=== PATIENT | female | born 1940 | race Caucasian/White ===

== ENCOUNTER 2020-07-05 15:43 | Inpatient (IN) | payer MEDICARE, OTHER ==
[~2020-07-05] VITALS: Ht 165.1 cm; Wt 118.2 kg
[~2020-07-05 15:43] MED LIST: CITRACAL-VIT D1 EAC2 PO; CRESTOR5 MG PO; DYAZIDE 37.5-251 EA PO; FISH OIL 1,2001 EACH PO; FISH OIL 1,4001 EACH PO; MULTIVITAMINS1 EAC7 PO; VITAMIN D400 UNI4 PO; VITAMIN E400 UNI1 PO; WARFARIN SODIUM1 MG PO; WARFARIN SODIUM2 MG PO
[2020-07-05] MEDS ORDERED: FUROSEMIDE40 MG PO (19:54)
[2020-07-05] MEDS ORDERED: K-TAB ER20 MEQ PO (19:58)
--- NOTE | 2020-07-05 20:43 | NUR ---
@1946 PT ADMITTED TO ROOM 121, ACCOMPANIED BY HER DAUGHTER IN LAW (DIL). PT ABLE TO SLOWLY SCOOT SELF FROM THE STRETCHER TO HER BED, NOTED LOWER EXTREMITIES WRAPPED WITH EVER WRAPS. ON 2L O2, NC, DIL STATES THAT PT IS "SUPPOSE TO USE OXYGEN" BUT FAMILY HAVE NOT BEEN SUCCESSFUL IN HAVING PT WEAR O2. PT USES A CANE AT HOME, BUT AGREES TO USE A WALKER TONIGHT. HAS DEMENTIA, BUT ABLE TO CONVERSE, NEEDING TO HAVE REMINDERS OF THE CONVERSATION AND MEDICAL EVENTS BY HER DIL. HAS NOT ATE LUNCH OR DINNER BUT STATES SHE IS NOT HUNGRY WHEN OFFERED FOOD. DRANK SOME WATER WHEN OFFERED. BED ALARM PLACED PT ASKED SEVERAL TIMES ABOUT GETTING UP TO USE THE BATHROOM, WHAT TO DO. CALL LIGHT WITHIN REACH, EDUCATED ON HOW TO CALL FOR HELP. REFUSES TO HAVE TV ON, PREFERS TO READ, DALIA WILL BRING IN PT'S BOOK SATURDAY.
--- NOTE | 2020-07-05 22:00 | NUR ---
ADMISSION ASSESSMENT COMPLETE. PT ALERT AND ORIENTED X 4. PT IS NOTED TO BE FORGETFUL AND REPETITIVE WITH QUESTIONS. WILL PLACE BED ALARM FOR SAFETY. O2 2L/NC IN PLACE. RESPIRATIONS EVEN. ABSCESS IN RIGHT GROIN ERYTHMATOUS AND TENDER. ERYTHEMA AND WARMTH ALSO NOTED TO RIGHT THIGH. BILATERAL LOWER EXTREMITIES WRAPPED WITH EVER WRAPS DUE TO CHRONIC LYMPHEDEMA. PT DENIES PAIN OR NAUSEA. UP TO BR WITH SBA AND FWW TO VOID. GAIT STEADY. BACK TO BED, SOFÍA WELL. UA SENT TO LAB. IV ABX INFUSING PER ORDER. PT DENIES QUESTIONS OR CONCERNS. BED ALARM FOR SAFETY. CALL LIGHT IN REACH.
--- NOTE | 2020-07-06 00:30 | EKG ---
[facility] [address] [facility] [place] [address] Signed Sinus rhythm with premature atrial complexes with aberrant conduction Left axis deviation Right bundle branch block Abnormal ECG No previous ECGs available Confirmed by PEE JACKSON MD ([id number]) on 07/06/2020 12:30:06 AM Electronically Signed By: PEE JACKSON MD 07/06/20 0030 PATIENT NAME: MELLISA BOBBY [facility] [place], [place] Electrocardiogram DATE OF : 38 PHYSICIAN: PEE JACKSON MD REPORT #: [id number] REPORT IS CONFIDENTIAL AND NOT TO BE RELEASED WITHOUT AUTHORIZATION
--- NOTE | 2020-07-06 01:19 | NUR ---
PT RESTING IN BED WITH EYES CLOSED, NAD.
--- NOTE | 2020-07-06 02:15 | NUR ---
CALL LIGHT ANSWERED. PT UP TO BR WITH FWW AND SBA TO VOID 200 ML CONCENTRATED URINE. GAIT STEADY. BACK TO BED, SOFÍA WELL. DENIES PAIN. VS AND I&O COMPLETE. PT AFEBRILE. DENIES FURTHER NEEDS. PT IN VIEW OF NURSES STATION. BED ALARM FOR SAFETY.
--- NOTE | 2020-07-06 05:00 | NUR ---
PT CALLED, UP TO VOID 1PA FWW, PT VITALS DONE, RN OKAY'D LOWER BP, GRAPE JUICE PROVIDED, NO FURTHER NEEDS
--- NOTE | 2020-07-06 05:56 | NUR ---
IV ABX INFUSING PER ORDER. PT DENIES PAIN OR NAUSEA. WARM BLANKETS PROVIDED. REASSESSED BP. PT REPORTS CHRONIC LOW BP, ASYMPTOMATIC. O2 2L/NC IN PLACE. DENIES FURTHER NEEDS. CALL LIGHT IN REACH.
--- NOTE | 2020-07-06 08:00 | NUR ---
RECEIVD REPORT AT 0700, FOUND PT IN BED AWAKE. PT HAS NO NEEDS AT THAT TIME.
--- NOTE | 2020-07-06 09:24 | NUR ---
V/S ARE WDL. PT IS REFUSING O2 EVEN THOUGH SHE FAILED A ROOM AIR TRIAL. MD JACKSON IS AWARE. ABD SOUNDS ARE PRESENT, UPPER LOBES ARE CLEAR, LOWER LOBES ARE DIMINISHED. LOWER LEGS ARE WRAPPED DUE TO HER LYMPH EDEMA. RIGHT GROIN ABCESS HAS NO DRAINAGE PRESENT AT THIS TIME. REDNESS AND EDEMEA STILL PRESENT. WILL CONTINUE TO MONITOR.
[2020-07-06] MEDS ORDERED: WOMEN'S 50 PLU1 EACH PO (09:35)
[2020-07-06] MEDS ORDERED: VITAMIN D325 MCG PO (09:35)
[2020-07-06] MEDS ORDERED: ASPIRIN325 MG PO (09:36)
--- NOTE | 2020-07-06 09:55 | NUR ---
IN TO SPEAK WIHT PT AND DAUGHTER IN LAW FOR CASE MANAGEMENT ASSESSMENT. PT REPORTS THAT SHE HAS HELP AT HOME, WELL A WALKER AND A CANE. PT DENIES ANY FURTHER NEED AT HOME. SHE DOES REQUEST THAT HER RECORDS GET SENT TO DR TEE UPON DISCHARGE, ACOUSTICAL CARPENTER NOTIFIED.
--- NOTE | 2020-07-06 10:50 | NUR ---
v/s and I&Os done and recorded patent attorney assisted pt to use the bathroom. no other needs at this time
--- NOTE | 2020-07-06 12:00 | NUR ---
OVERALL SECOND SHIFT ASSESSMENT IS UNCHANGED FROM THE FIRST. PT HAS 99.6 F TEMP AT THIS TIME. RIGHT GROIN ABCESS STILL HAS VERY SCANT DRAINAGE PRESENT. NO OTHER CONCERNS NOTED AT THIS TIME.
--- NOTE | 2020-07-06 13:52 | NUR ---
PT IN ROOM. PT IS TRYING TO SLEEP SOME. NO NEW CONCERNS NOTED AT THIS TIME. WILL CONTINUE TO MONITOR.
--- NOTE | 2020-07-06 14:40 | NUR ---
ASSISTED PT TO BATROOM AND BACK. PT IN BED NOW AND WOULD LIKE TO SLEEP FOR A BIT. WILL MONITOR URINE OUTPUT SINCE IT HAS DROPPED OFF SOME.
--- NOTE | 2020-07-06 16:51 | NUR ---
MD JACKSON WAS INFORMED ABOUT PT TEMP OF 102.1 F. PRN TYLENOL HAS BEEN GIVEN. PT ALSO IS CONFUSED TO PLACE, EVENT, TIME, DATE AND SURROUNDINGS. WILL CONTINUE TO MONITOR.
--- NOTE | 2020-07-06 16:59 | NUR ---
PT IS SEEN FOR A WOUND CONSULT OF THE RIGHT GROIN. PT HAD AN ABSCESS DRAINED IN THE ED YESTERDAY BY THE ER DOC. THE AREA IS RED, INFLAMMED, HOT TO THE TOUCH, AND THERE IS AN AREA OF INDURATION WHERE THE GROIN AND THIGH MEET. THERE IS YEAST IN THE GROIN FOLDS. IT IS RECOMMENDED THAT THEY PLACE A PILLOW CASE IN THOSE FOLD TO KEEP THE AREA DRY AND THE YEAST OFF THE SKIN.
--- NOTE | 2020-07-06 17:26 | NUR ---
TEMP IS BETTER AT 100.2 F. PT IN BED READING. FAMILY LEFT FOR TODAY, NO MRI POSSIBLE DUE TO SX CLIPS IN HER PELVIS.
--- NOTE | 2020-07-06 20:00 | NUR ---
PT FINISHED ON TOILET, PT BACK IN BED, BOOSTED UP WITH HELP FROM RT, NO FURTHER NEEDS, FRESH ICE WATER GIVEN AT THIS TIME,
--- NOTE | 2020-07-06 21:48 | NUR ---
Up to br, 1PA/FWW tolerated well, back to bed, wrappings in both legs in place. edema/lymphedema, 2 IV sites sl RA. denies c/o pain, cooperative with vitals
--- NOTE | 2020-07-06 23:57 | NUR ---
PT BACK FROM TO THE TOILET, NO FURTHER NEEDS, PT WILL READ HER BOOK AT THIS TIME AND KNOWS HOW TO TURN THE LIGHT OUT
--- NOTE | 2020-07-07 02:58 | NUR ---
PT UP TO BED AND THEN BACK TO BED, TEMP RECHECKED PER RN, 99.0, INFORMED RN, NO FURTHER NEEDS, ICE WATER TOPPED OFF
--- NOTE | 2020-07-07 04:36 | NUR ---
BED ALARM SOUNDED PT SITTING UP AT EDGE OF BED WANTING TO GO TO RESTROOM. 1PA WITH FWW TO RESTROOM AND BACK TO BED. SHE DENIES FURTHER NEEDS AT THIS TIME. CALL LIGHT IS CLOSE.
--- NOTE | 2020-07-07 04:53 | NUR ---
Pt pleasant and coop, awakes easily, intermittent confusion to place or queta, easily reoriented. Has been on room air most of this shift til about [id number] when after coming back from br, was SOB and wheeze, lungs dim at bases, no wheezes auscultated, abd large, grossly obese. has lymphedema of bilat LE, wrappes in place done by family. pt Up to br several times this shift, 1PA/FWW has been tolerating very well til 0430 when sob noted on retunr. voiding small amount of yellow urine, had bm x1. R labia groin indurated and redness present, small amount of ss/taylor drainage present off and on. Pt had a yeasty smell only earlier on shift, but groing area dc odor has been increased with strong malodor smell, pad applied to area and area rinsed with warm water, white cheese discharge present too. R groing . call light and fluids at hands reach. no c/o pain. waiting on BC and wound final C&S results from lab. a
--- NOTE | 2020-07-07 08:00 | NUR ---
PT HAS SOB AT THIS TIME. O2 SATS WDL HOWEVER. EXPIR. WHEEZING NOTED IN ALL LOBES, HR SEEMS IRREGULAR AT THIS TIME. MD JACKSON NOTIFIED. TELE ORDER RECEIVED. PT NOW ON TELE 5. ABD SOUNDS PRESENT, LOWER LEGS ARE WRAPPED. FEET ARE WARM TO TOUCH. URINE OUTPUT IS ADEQUATE, PT HAD ANOTHER BM TODAY. WILL CONTINUE TO MONITOR.
--- NOTE | 2020-07-07 10:12 | NUR ---
PT IN CT AT THIS TIME.
--- NOTE | 2020-07-07 12:09 | NUR ---
PT SITTING IN CHAIR READING. NO NEW CONCERNS NOTED AT THIS TIME.
--- NOTE | 2020-07-07 13:25 | NUR ---
WHILE MONITORING PTS TELE, PT HAD 3 EPISODES OF 10-15 BEATS OF V-TACH WITHIN 15 MIN. CHARGE NURSE ON MED SURG NOTIFIED WHO STATES THEY ARE AWARE OF SITUATION AND HAVE BROUGHT TO THE ATTENTION OF MD.
--- NOTE | 2020-07-07 15:30 | NUR ---
DRAINAGE ON ABCESS IN TIGHT GROIN IS NOW DRAINING AGAIN. THE DRAINAGE IS SMALL AMOUNT BUT PURULENT AND MORE FOUL SMELLING THAN YESTERDAY. A FULL ABD PAD WAS APPLIED IN THIS AREA. ALL LOBES STILL HAVE EXPIRATORY WHEEZING PRESENT AND PT FEELS LIKE SHE HAS PHLEGM STUCK IN HER THROAT. NO SOB THOUGH.
--- NOTE | 2020-07-07 16:00 | NUR ---
Spoke with Adriane and her DIL. Pt would like to dc to home when cleared medically. She lives with her spouse and son and DIL assist them. Pt does not drive. Denies financial issues. Per DALIA pts memory is poort adn she attends all her appts with her. Pt frequently answers questions stating she is fine, but DIL sitting behind her shakes her head no. Pt feels she can drive and does not have any issues with stairs. This does not appear to be true. DALIA has not seen Dr. Sanchez and informed she would really like to speak with her, but will have to leave later. Informed I will leave a note requesting she call DALIA, if she is not in the room when she visits.
--- NOTE | 2020-07-07 18:48 | NUR ---
PT WAS PUT ON TELE #5 THIS AM DUE TO IRREGULAR HR. PT ALSO HAD SOB AT THAT TIME. EXPIRAT. WHEEZING IN UPPER AND LOWER AIRWAY WAS HEARD WITH BOTH ASSESSMENTS. RT TO DO DEEP BREATH AND COUGH... V/S OVERALL BETTER THAN YESTERDAY. THIS AFTERNOON IT WAS NOTED THAT THE DRAINAGE ON HER ABCESS INCREASED AND NOW AGAIN IS PURULENT IN NATURE WITH A VERY FOUL ODOR. NEW CULTURES WERE DONE. MD JACKSON IS AWARE OF EVERYTHING. PT OVERALL HOWEVER LOOKS AND STATED THAT SHE WAS FEELING BETTER TODAY.
--- NOTE | 2020-07-07 19:10 | NUR ---
WHILE IN MONITORING TELE. PT WAS SEEN TO HAVE A 15 SECOND RUN OF VTACH FOLLOWED ABOUT 10 SECONDS LATER BY ANOTHER 15 SECOND RUN OF VTACH. MED SURG NOTIFIED OF THIS EVENT. REPORTED THAT DR JACKSON WAS THERE WATCHING THE TELE SCREEN WELL AND WAS AWARE OF THE SITUATION. NO ORDERS GIVEN. OVER TO MED SURG TO ASSESS PT. BP 132/72, HEART RATE 88. PT REPORTS SHE IS AWARE OF CHANGE IN HEART RATE WHEN UP TO BATHROOM, BUT FEELS FINE WHEN BACK TO BED. DENIES SOB OR DIZZINESS, ALSO DENIES CHEST PAIN.
--- NOTE | 2020-07-07 22:03 | NUR ---
Up to br w/o notifying RN, bed alarm back on. voided small amounts yellow urine with scant amont of thick pink/creamy colored drainage from R groin are, strong odor. pad in place. pradeep area red. increased induration and tendeness to area noted during palpation. Pt on room air at begining of shift, increaed SOB noted on return, 87-88%, was placed on O2 2L nc, sasts up to 95% in less than a minutes, pt does denied feeling sob, but noted by this rn, lip pursing noted too, much improved at rest. denies CP. tele in place on ventricular rate. lungs with crackles at bases, no wheezing auscultated, large abd, LE w wrapps in place per lymphedema/chronic. elevated. 2 Sl patent R ar, abx infusing. no c/o adverse reaction
--- NOTE | 2020-07-07 23:50 | NUR ---
pt up to the bsc multiple times, no voids, pt up to try again, will call when ready
--- NOTE | 2020-07-08 | NUR ---
pt done on the bsc, in to asst pt back to bed, no further needs
--- NOTE | 2020-07-08 00:56 | NUR ---
pt up to the bsc, will call when ready
--- NOTE | 2020-07-08 01:02 | NUR ---
pt done, now back to bed at this time, no further needs
--- NOTE | 2020-07-08 01:39 | NUR ---
pt up to the bsc
--- NOTE | 2020-07-08 01:46 | NUR ---
pt is back in bed
--- NOTE | 2020-07-08 03:07 | NUR ---
IN TO SBA PT BACK TO BED FROM THE COMMODE, NO FURTHER NEEDS
--- NOTE | 2020-07-08 04:02 | NUR ---
PT UP TO THE BSC AT THIS TIME
--- NOTE | 2020-07-08 04:09 | NUR ---
PT BACK IN BED, VITALS AND I&Os TAKEN, NO FURTHER NEEDS AT THIS TIME
--- NOTE | 2020-07-08 04:54 | NUR ---
patient called to use bsc. 1pa to bsc. back to bed. patient is in good spirit and chats with this reproductive surgeon. bed alarm on. call light in reach. denies any futher needs at this time.
--- NOTE | 2020-07-08 05:31 | NUR ---
Pt has been awake most of the night, up and down to BSC, voiding small amounts of urine and sometimes none, no bm. On room air, was placed on 2L NC for a short period of time when pt become SOB and had pursing of lips, sasts were 86-88% on room air at that time. sats inmediately went up to mid 90's. lungs dim with exp crackles bases. Tele#[address] currently on SR reading, has alternated between a run of bigeminy, VR, afib, PVC's, specially when getting up. or moving in bed, much better reading now. denies CP. no c/o adverse reaction to IV abx, SL patent. R sided groin area has had medium amount of pink-creamy foul smelling discharge. increased redness and induration of area palpated. Bilat legs w chronic lymphedema covered w wrappings done by family yesterday. generalized edema. tolerating liquids well, no c/o pain, legs elevated, call light at bedside. 1PA/FWW to BSC. O2 off as pt takes it off. Bed alarm on per fall risk precautions
--- NOTE | 2020-07-08 06:08 | NUR ---
IN TO GET PT UP TO BSC
--- NOTE | 2020-07-08 08:00 | NUR ---
RECEIVED REPORT AT 0700, PT WAS IN BED AWAKE AT THAT TIME. NO NEEDS OR CONCERNS NOTED.
--- NOTE | 2020-07-08 09:45 | NUR ---
PATIENT UP IN CHAIR. FAMILY IN ROOM. VITALS AND I&OS CHARTED. IVS IN BOTH ARMS, CHECKED WITH RN TO WHAT ARM TO USE. CALL LIGHT IN REACH, NO OTHER NEEDS AT THIS TIME
--- NOTE | 2020-07-08 10:00 | NUR ---
BOTH IV SITES HAD TO BE CHANGED AND NEW IV SITES INSERTED. RLL HAD SOME EXPRI. WHEEZING PRESENT, OTHER LOBES WERE DIMINISHED BUT CLEAR, PT STILL HAS RUNS OF V-TACH WITH ACTIVITY. ABCESS UNCHANGED SO FAR. WILL DO CHELY CARE LATER.
--- NOTE | 2020-07-08 12:00 | NUR ---
PT IN ROOM. OTHER STAFF HELPING WITH BSC.
--- NOTE | 2020-07-08 12:30 | NUR ---
Spoke with pts DIL. She states concern as she feels pt needs assist and would like me to encourage pt to bath 2 x per week, agree to increased cg hours, and to use her walker for safety. Spoke with pt in room and encouraged all of the above. Spoke with Dr. Sanchez and updated and asked if she could also encourge pt as above to assist the DIL who is assisting the pt. She agrees.
--- NOTE | 2020-07-08 14:30 | NUR ---
V/S WDL, URINE OUTPUT IS GREAT. WEIGHT WAS 116.7 KG STANDING. THIS IS UNCHANGED SINCE ARRIVAL. ALL LOBES ARE CLEAR WITH DIMINISHED BASES. PT OVERALL IS STRONGER AND WALKES BETTER OVERALL. NO NEW CONCENRNS WERE NOTED. ABCESS RIGHT BIJU STILL HAS SOME PURULENT DRAINAGE PRESENT. LESS THAN YESTERDAY HOWEVER. WILL CONTINUE TO MONITOR.
--- NOTE | 2020-07-08 16:30 | NUR ---
PT IN ROOM RESTING WITH EYES CLOSED AT THIS TIME. DAUGHTER IN-LAW IN ROOM. NO NEW CONCERNS NOTED AT THIS TIME.
--- NOTE | 2020-07-08 17:14 | NUR ---
PATIENT AWAKE IN BED, DAUGHTER IN LAW IN ROOM. RN NOTIFIED OF ELEVATED B/P. VITALS AND I&OS CHARTED, CALL LIGHT IN REACH
--- NOTE | 2020-07-08 17:30 | NUR ---
PT OVERALL HAD A BETTER DAY TODAY. PT APPEARED STRONGER OVERALL. LOBES WERE CLEAR, NO SOB EPISODES NOTED THIS SHIFT. RIGHT GROIN ABCESS IS STILL DRAINING PURULENT DRAINAGE WHICH HAS LESSEND IN AMOUNT. URINE OUTPUT FROM [facility] WAS GOOD. NEW IV SITES WERE INSERTED. PT STILL HAS SOME RUNS OF V-TACH AT TIMES. HOWEVER, THERE WERE LESS V-TACH RUNS TODAY THAN YESTERDAY.
--- NOTE | 2020-07-08 18:15 | NUR ---
MD JACKSON WAS CALLED BECAUSE PT HAD SEVERAL RUNS OF PROLOGEND V-TACH IN THE 170'S. ORDERS FOR BMP AND MG+2 WERE RECEIVED.
--- NOTE | 2020-07-08 18:47 | NUR ---
PT CONTINUES TO HAVE RUNS OF V-TACH UP TO THE 170'S. PT SO FAR SEEMS ASYMPTOMATIC. PT IS IN BED LYING DOWN.
--- NOTE | 2020-07-08 19:00 | NUR ---
CLOSE TO 1900 MD JACKSON WAS CALLED AGAIN SINCE THE V-TACH EPISODES WERE HAPPENING WITH MORE FREQUENCY. I ASKED TO TROPONIN LAB, EKG, AND STATED THAT PT WOULD BE BETTER OF IN THE CCU. MD JACKSON CAME DOWN ASSESSED PT AND A DECISION WAS MADE TO TRANSFER PT TO CCU. TROP. AND EKG WERE ALSO ADDED AND DONE. PT NOW IN 127 IN CCU.
--- NOTE | 2020-07-08 19:13 | NUR ---
1909 - transferred to ICU as per Dr Sanchez
--- NOTE | 2020-07-08 20:30 | NUR ---
PT ARRIVED TO ROOM 127 @ 1905 VIA BED, BEDSIDE REPORT RECEIVED FROM KATIE RASMUSSEN. DR. JACKSON AND VERONICA Gonzalez ALSO IN ROOM. PT IS ALERT/ORIENTED, DENIES PAIN. LUNGS CLEAR, DIM IN BASES, 1L O2 PLACED FOR SPO2:88-89%, DENIES SOB. HR IRREGULAR, PT HAVING FREQUENT EPISODES OF V-TACH WITH RATES REACHING 170'S. PT IS ASYMPTOMATIC DURING THESE EPISODES AND DENIES CHEST PAIN. BOWEL TONES ACTIVE, DENIES NAUSEA. UP TO BSC WITH 1-PA AND FWW TO VOID AND THEN BACK TO BED. PT HAS OPEN ABSCESS TO RIGHT GROIN/THIGH, DRAINING FOUL PURULENT FLUID, ABD PAD PLACED IN GROIN FOLD. BLE WRAPPED FOR CHRONIC LYMPHEDEMA, UNABLE TO ASSESS PEDAL PULSES, PT DENIES NUMBNESS/TINGLING IN EXTREMITIES. BED ALARM SET FOR SAFETY, CALL LIGHT WITHIN REACH. REPEAT EKG COMPLETED. FLUID BOLUS AND K RIDER STARTED.
--- NOTE | 2020-07-08 20:46 | EKG ---
[facility] [address] [place] [address] Signed Undetermined rhythm Left axis deviation Right bundle branch block Inferior infarct , age undetermined Abnormal ECG When compared with ECG of 05-JUL-2020 16:42, Current undetermined rhythm precludes rhythm comparison, needs review Questionable change in QRS duration Inferior infarct is now present Confirmed by PEE JACKSON MD ([id number]) on 07/08/2020 8:46:44 PM Electronically Signed By: PEE JACKSON MD 07/08/202045 PATIENT NAME: MELLISA BOBBY [facility] [place] Electrocardiogram DATE OF : 38 PHYSICIAN: PEE JACKSON MD REPORT #: [id number] REPORT IS CONFIDENTIAL AND NOT TO BE RELEASED WITHOUT AUTHORIZATION
--- NOTE | 2020-07-08 20:47 | EKG ---
[facility] [address] [place], [place] [address] Signed Wide QRS tachycardia Left bundle branch block Abnormal ECG When compared with ECG of 08-JUL-2020 17:52, (Unconfirmed) Previous ECG has undetermined rhythm, needs review Confirmed by PEE JACKSON MD ([id number]) on 07/08/2020 8:47:00 PM Electronically Signed By: PEE JACKSON MD 07/08/202046 PATIENT NAME: MELLISA BOBBY Electrocardiogram DATE OF : 38 PHYSICIAN: PEE JACKSON MD REPORT #: [id number] REPORT IS CONFIDENTIAL AND NOT TO BE RELEASED WITHOUT AUTHORIZATION
--- NOTE | 2020-07-08 21:30 | NUR ---
PT SET OFF BED ALARM, NEEDS TO USE BATHROOM. UP TO BSC WITH 1-PA AND FWW, UNABLE TO VOID AT THIS TIME. RETURNED TO BED AND BED ALARM SET. CALL LIGHT WITHIN REACH.
--- NOTE | 2020-07-08 22:11 | NUR ---
PT SET OFF BED ALARM, WAS REACHING FOR IV PUMP BECAUSE IT WAS ALARMING. PT CONTINUES TO BE INTERMITTENTLY CONFUSED. RE-ORIENTED TO SURROUNDINGS AND EQUIPMENT. BED ALARM RESET FOR SAFETY.
--- NOTE | 2020-07-08 22:56 | NUR ---
PT SET OFF BED ALARM, NEEDED TO USE BATHROOM. UP TO BSC WITH 1-PA AND FWW. UNABLE TO VOID, HAD SMEAR OF BM. PERICARE PROVIDED AND CLEAN ABD PLACED TO RIGHT GROIN. WITH ACTIVITY, PT HAD 30 SECONDS OF V-TACH WITH RATE OF 158. HR THEN RETURNED TO 70-80'S. PT REMAINS ASYMPTOMATIC WITH V-TACH EPISODES. PT NOW BACK IN BED, IV'S SALINE LOCKED AND INTACT. BED ALARM ON.
--- NOTE | 2020-07-08 23:41 | NUR ---
PT AGAIN SET OFF BED ALARM, NEEDED TO VOID. UP TO BSC WITH 1-PA/FWW. PT GIVEN CALL LIGHT WHILE I STEPPED OUTSIDE OF DOOR FOR PRIVACY. PT CALLED APPROPRIATELY AND I ASSISTED WITH PERICARE. NO EPISODES OF V-TACH WITH ACTIVITY AT THIS TIME. ASSESSMENT COMPLETED. PT IS CONFUSED INTERMITTENTLY, FORGETFUL OF TIME AND SURROUNDINGS. CONTINUES TO DENY PAIN, SOB, AND NAUSEA. REMAINDER OF ASSESSMENT UNCHANGED. IV SITES INTACT. BED ALARM SET.
--- NOTE | 2020-07-09 01:13 | NUR ---
PT PULLED OFF PULSE OX AND BP CUFF, IN TO CHECK ON HER. PT STATES SHE IS "TANGLED UP" IN CORDS. PT STATES SHE NEEDS TO GET UP, HOWEVER, SHE WAS UNABLE TO VOID. RETURNED TO BED. VITAL SIGNS TAKEN AND THEN LEFT OFF BP CUFF AND PULSE OX PROBE. PT DENIES FUTHER REQUESTS. CALL LIGHT WITHIN REACH.
--- NOTE | 2020-07-09 02:51 | NUR ---
PT APPEARS TO BE SLEEPING SOUNDLY, NO APPARENT DISTRESS. RESPIRATIONS EVEN AND UNLABORED, 1L O2 REMAINS IN PLACE. HR:66, RR:19 PER MONITOR.
--- NOTE | 2020-07-09 04:40 | NUR ---
PT AWAKE AT THIS TIME. ASSESSMENT COMPLETED. PT CONTINUES TO DENY PAIN, SOB, AND NAUSEA. INTERMITTENTLY CONFUSED, BUT EASILY RE-ORIENTED. REMAINDER OF ASSESSMENT UNCHANGED. PT UP TO BSC WITH 1-PA/FWW, VOIDED AND PROVIDED OWN PERICARE BEFORE RETURNING TO BED. NO EPIDODES OF V-TACH WITH ACTIVITY. PT DENIES FURTHER REQUESTS AT THIS TIME, CALL LIGHT WITHIN REACH.
--- NOTE | 2020-07-09 05:48 | NUR ---
FLAGYL INFUSION STARTED. PT RESTING IN BED, 1L O2 REMAINS IN PLACE. PT DENIES NEEDS AT THIS TIME. CALL LIGHT WITHIN REACH.
--- NOTE | 2020-07-09 07:29 | EKG ---
[facility] [address] [place] [address] Signed Sinus rhythm with occasional premature ventricular complexes Left axis deviation Right bundle branch block Inferior infarct , age undetermined Abnormal ECG When compared with ECG of 08-JUL-2020 17:53, (Unconfirmed) Sinus rhythm has replaced Wide QRS tachycardia Vent. rate has decreased BY 76 BPM Confirmed by PEE JACKSON MD ([id number]) on 07/09/2020 7:29:24 AM Electronically Signed By: PEE JACKSON MD 07/09/20 0729 PATIENT NAME: MELLISA BOBBY Electrocardiogram DATE OF : 38 PHYSICIAN: PEE JACKSON MD REPORT #: [id number] REPORT IS CONFIDENTIAL AND NOT TO BE RELEASED WITHOUT AUTHORIZATION
--- NOTE | 2020-07-09 07:30 | NUR ---
REPORT RECIEVED. PATIENT IS RESTFUL IN BED AT THIS TIME.
--- NOTE | 2020-07-09 08:00 | NUR ---
ASSESSMENT DONE. PATIENT DENIES PAIN OR NAUSEA. LEGS WRAPPED. NO DRANIAGE NOTED FROM OPEN ABCESS AREA IN RIGHT GROIN. O2 AT 1 LITER PER NC IN PLACE. TALKED WIT PATIENT ABOUT POC FOR DAY, I WILL REINFORCE THIS THROUGHOUT THE DAY PATIENT IS FORGETFUL. ASKING ABOUT HER AND STATES SHE THINKS SHE IS READY TO GO HOME. TALEKD WITH PATIENT ABOUT THE NEED FOR HER TO REMAIN IN HOSPITAL. NO V-TACH NOTED. KCL HUNG PER ORDERS. PATIENT IS TALKATIVE AND IN GOOD SPIRITS.
--- NOTE | 2020-07-09 08:20 | NUR ---
SITTING UP IN BED FOR BREAKFAST.
--- NOTE | 2020-07-09 09:30 | NUR ---
took breakfast well.
--- NOTE | 2020-07-09 10:00 | NUR ---
UP TO COMMODE TO VOID, IS FAIRLY STABLE ON FEET, USING WALKER. AFTER VOIDING, TRANSFERRED TO CHAIR.
--- NOTE | 2020-07-09 11:00 | NUR ---
PATIENT DAUGHTER IN LAW HERE TO SEE PATIENT, DAUGHTER IN LAW REWRAPPED LEG WRAPS. PATIENT TOLERATED WELL.
--- NOTE | 2020-07-09 12:15 | NUR ---
ASSESSMENT UNCHANGED. CONTINUES TO SIT UP IN [facility] FOR LUNCH. FAMILY MEMBER REMAIN IN ROOM.
--- NOTE | 2020-07-09 13:30 | NUR ---
TOOK LUNCH FAIR, TO COMMODE TO VOID THEN TRANSFERRED BACK BED WITH ASSIST.
--- NOTE | 2020-07-09 13:50 | NUR ---
DR. JACKSON UPDATED ON PATIENT CONDITION, IS AWARE ON INFLAMATION AT BOTH IV SITES. ORDERS RECIEVED TO LEAVE THE IV SITE TO LEFT INNER WRIST EVEN SLIGHT PINK AREA NOTED AT THIS IV SITE. IV SITE TO RFA DC'D WITH CATH INTACT. NEW IV SITE STARTED TO RIGHT WRIST AREA.
--- NOTE | 2020-07-09 15:00 | NUR ---
TO COMMODE THEN TO CHAIR. MOVING WELL WITH WALKER.
--- NOTE | 2020-07-09 17:43 | NUR ---
SITTING UP IN CHAIR FOR DINNER. PATIENT HS SMALL AMOUNT OF YELLOW DRAINAGE FROM UPPER RIGHT GROIN ABCESS. NO ORDER NOTED.
--- NOTE | 2020-07-09 18:00 | NUR ---
TOOK DINNER WELL. CONTINUES TO DENY PAIN.
--- NOTE | 2020-07-09 18:30 | NUR ---
TO COMMODE TO VOID,THEN TO BED. TRANSFERS WELL USING WALKER. UPON RETURN TO BED, CHELY CARE DONE. CONTINUES TO TO HAVE SMALL AMOUNT OF DRAINAGE FROM THE RIGHT ABCESS AREA. CHELY AREA IS RED, HAS SWELLING BELOW ABCESS AREA. WHEN PRESSURE APPLIED TO THIS ARE, DOES HAVE SLIGHT PAIN. DR. JACKSON AWARE. POWDER ORDERED.
--- NOTE | 2020-07-09 20:20 | NUR ---
PATIENT RESTING IN BED WATCHING TV. LIGHTS DIMMED. PATIENT REPORTS FEELING WARM AND COMFORTABLE. VS STABLE. PATIENT STATES SHE WILL BE READY FOR BED IN ABOUT 20MINS OR SO. CALL LIGHT IN REACH.
--- NOTE | 2020-07-09 20:37 | NUR ---
VERIFIED PATIENT'S VANCO DOSE WITH TELE PHARMACY
--- NOTE | 2020-07-09 20:54 | NUR ---
PATIENT ASSISTED WITH EVENING CARES. PATIENT IS ALERT AND ORIENTED TO PERSON AND PLACE. REPORTS GENERAL PAIN, PRN TYLENOL PROVIDED. IV SITE FLUSHED, WNL. VANCO STARTED. CHELY CARE DONE, MODERATE YELLOW DRAINAGE NOTED. AREA CLEANED, DRYED AND SCHEUDLED POWDER APPLIED. POWDER ALSO APPLIED UNDER BREAST WITH HAVE SMALL AMOUNT OF REDNESS. VS STABLE. PATIENT DENIED ANY FURTHER NEEDS. DEMONSTRATED ABILITY TO USE CALL LIGHT. LIGHTS DIMMED.
--- NOTE | 2020-07-09 22:02 | NUR ---
SCHEUDLED IV ABX STARTED. SITE WNL. PATIENT DENIED NEEDS. RESTING IN BED. CALL LIGHT IN REACH.
--- NOTE | 2020-07-09 23:28 | NUR ---
PATIENT UP TO THE BSC. VOIDED 250MLS CONCENTRATED URINE. RETURNED TO BED. MOVES EASILY WITH MINIMAL ASSIST. PATIENT DENIED ANY NEEDS. IV ABX FINISHED, SITE WNL.
--- NOTE | 2020-07-10 01:06 | NUR ---
patient up to bsc to have BM. patient steady on her feet and oriented. denies any needs. returned to bed without issue.
--- NOTE | 2020-07-10 02:30 | NUR ---
PATIENT UP TO THE BSC. PATIENT SAT FOR SEVERAL MINS AND VOIDED 100 MLS CONCENTRATED URINE. PATIENT RETURNED TO BED. CALL LIGHT IN REACH.
--- NOTE | 2020-07-10 04:30 | NUR ---
PATIENT REQUEST TO GET UP TO THE RECLINER. ASSISTED PATIENT TO RECLINER. FRESH ICE WATER PROVIDED. PATIENT READING. CALL LIGHT IN REACH.
--- NOTE | 2020-07-10 06:00 | NUR ---
PATIENT UP TO THE STANDING SCALE FOR DAILY WT. PATIENT AMBULATED INTO THE BATHROOM WITH FWW. MODERATE AMOUNT OF DRAINAGE NOTED ON CHUCKS PAD FROM GROIN. PATIENT DENIED FEELING PAINFUL. VS STABLE.
--- NOTE | 2020-07-10 07:30 | NUR ---
REPORT RECIEVED. PATIENT IS SITTING UP IN CHAIR. DENIES PAIN.
--- NOTE | 2020-07-10 08:00 | NUR ---
ASSESSMENT DONE. TALKED WITH PATIENT ABOUT POC FOR DAY AND POSSIBLE DISCHARGE. IS UNDERSTANDING.
[2020-07-10] MEDS ORDERED: LEVOFLOXACIN750 MG PO (08:13)
[2020-07-10] MEDS ORDERED: METRONIDAZOLE250 MG PO (08:13)
--- NOTE | 2020-07-10 09:30 | NUR ---
TOOK BREAKFAST WELL. AMBULATED PATIENT IN HALLWAY. TOLERATED WELL. DENIES SHORTNESS OF BREATH, DIZZINESS. IS STABLE ON FEET, USING WALKER WITH AMBULATION. HR AT REST 70, WITH AMBULATION HR TO 112.
--- NOTE | 2020-07-10 10:00 | NUR ---
SPONGE BATH GIVEN WHILE SITTING IN CHAIR. CHELY CARE GIVEN. TALKED WITH PATIENT ABOUT HOW IMPORTANT KEEPING CHELY AREA CLEAN AND DRY IS.
--- NOTE | 2020-07-10 10:30 | NUR ---
TO BR TO HAVE LIQUID STOOL AND VOID 300 ML OF CONCENTRATED URINE, THEN BACK TO CHAIR.
--- NOTE | 2020-07-10 11:00 | NUR ---
DR. JACKSON HERE TO SEE PATIENT AND TALK WITH PATIENT [id number]. PATIENT PLAN TO BE DISCHARGED TODAY.
--- NOTE | 2020-07-10 12:15 | NUR ---
SITTING IN CHAIR FOR LUNCH. SL TO RIGHT AND LEFT ARMS DC'D WITH CATH INTACT. MONITOR DC'D. WILL WAIT FOR [id number] TO RETURN TO DISCHARGE PATIENT.
--- NOTE | 2020-07-10 13:00 | NUR ---
TOOK LUNCH WELL. WAITING DISCHARGE. PATIENT IS VERY TALKATIVE. DENIES PAIN OR PROBLEMS.
--- NOTE | 2020-07-10 15:00 | NUR ---
DISCHARGE INSTRUCTIONS GIVEN WITH PATIENT UNDERSTANDING. [id number] HERE.
--- NOTE | 2020-07-10 15:20 | NUR ---
DISCHARGED VIA W/C ACCOMP BY RN AND [id number].
--- NOTE | 2020-07-10 16:42 | NUR ---
FAMILY CALLED WITH CONCERN THAT RX FOR FLAGYL WAS NOT FILLED CORRECTLY, REVIEWED DISCHARGE SUMMARY ADN SPOKE WITH DR. BUSTILLO TO CLARIFY ORDER. ORDER SAIMA MILLS FOR FLAGYL 500MG TID PO. SHASHI BERRIOS CONTACTED, ORDER CLARIFIED WITH PHARMACIST MAKSIM AND HE WILL ADD A REFILL FOR 21 ADDITIONAL TABLETS OF 250MG TO COVER THE PT FOR THE WEEK. PT FAMILY MEMBER WAS CALLED AND NOTIFIED OF REFILL AND TO TAKE 2 TABLETS OF 250MG FLAGYL 3 TIMES DAILY.
== END 2020-07-10 15:20 | disposition home or self-care (01) | DRG 603 ==
LOC: ED 15:43 → MS 19:05 → CCU 07-08 19:10
PROVIDERS: ADMIT Internal Medicine; ATTEND Internal Medicine
DX: L03.314 Cellulitis of groin (principal); I47.2 Ventricular tachycardia; B95.7 Other staphylococcus as the cause of diseases classified elsewhere; L02.214 Cutaneous abscess of groin; D17.23 Benign lipomatous neoplasm of skin and subcutaneous tissue of right leg; N18.9 Chronic kidney disease, unspecified; I89.0 Lymphedema, not elsewhere classified; Z85.820 Personal history of malignant melanoma of skin; Z88.8 Allergy status to other drugs, medicaments and biological substances; Z88.4 Allergy status to anesthetic agent; Z79.899 Other long term (current) drug therapy; Z79.82 Long term (current) use of aspirin
CPT/HCPCS: 36415; 71045; 72192; 72193; 73706; 80048; 80053; 80202; 81001; 83605; 83735; 84484; 85025; 85651; 87070; 87205; 93005; 93010; 94760; J0696; J1650; J1940; J3370; J3480; J7030; J7060; Q9967

== ENCOUNTER 2021-06-23 08:00 | Day surgery (SDC) | payer MEDICARE, OTHER ==
[~2021-06-23] VITALS: Ht 162.6 cm; Wt 107.3 kg
[~2021-06-23 08:00] MED LIST changes: +ASPIRIN325 MG PO; +FUROSEMIDE40 MG PO; +K-TAB ER20 MEQ PO; +LEVOFLOXACIN750 MG PO; +METRONIDAZOLE250 MG PO; +VITAMIN D325 MCG PO; +WOMEN'S 50 PLU1 EACH PO
--- NOTE | 2021-06-24 16:48 | OR ---
[facility] [address], [place] [address] Signed DATE OF OPERATION: 06/23/2021 SURGEON: Subha Cash MD PREOPERATIVE DIAGNOSES: Vaginal bleeding, vulvar lesions, history of vulvar melanoma. POSTOPERATIVE DIAGNOSES: Vaginal nodules, vulvar lesions, history of melanoma. PROCEDURE: Exam under anesthesia, vaginal biopsy, excision of 2 vulvar lesions. ANESTHESIA: General LMA. ESTIMATED BLOOD LOSS: 25 mL. DRAINS: None. INDICATIONS AND FINDINGS: The patient is an 80-year-old female, who is status post vulvectomy for vulvar melanoma in 1997. She has not been seen for approximately 2 years as she had declined further evaluation at that time. There had been no evidence of any recurrent vulvar melanoma to that time. However, over the last several months, she has noticed some vaginal bleeding as well as some vaginal pain and presented to the office. She had several dark colored lesions on the vulva. The vaginal exam could not be done because of discomfort. At the time of surgery, the vaginal wall had 2 nodules, one on each side. The right side nodule was quite friable and necrotic. DESCRIPTION OF PROCEDURE: The patient was prepped and draped in the dorsal lithotomy position. The vagina was first evaluated. There was evidence of bleeding. Necrotic type mass was noted low down on the patient's right side as well as a firmer nodular area near the upper left side. There was some dark color to the left nodule. The vaginal biopsies were then done with biopsy forceps as it was not possible to excise these lesions given their location and the narrowness of her vagina. Multiple biopsies were done in each spot. [id number] sutures of 0 chromic were used to close some of the defect over the Electronically Signed By: SUBHA CASH MD 06/24/21 1648 PATIENT NAME: MELLISA BOBBY OPERATIVE REPORT DATE OF : 38 REPORT #: [id number] PHYSICIAN: SUBHA CASH MD PCP: OTHER PCP REPORT IS CONFIDENTIAL AND NOT TO BE RELEASED WITHOUT AUTHORIZATION [facility] [address], [place] [address] Signed biopsy sites though it was difficult because of the necrotic nature of the tumor. Cautery was also used to help control bleeding. There was no large amount of bleeding present but there was some oozing in these areas and Helen was then deployed over the tumors to help further in hemostasis. Following this, attention was directed more externally. The lesion at the upper aspect of the vaginal opening measured approx 2 cm x 1 cm was superficially excised. The defect was closed with subcuticular sutures of 3-0 Vicryl Rapide. Another lesion on the right lower aspect of the vaginal opening was also excised and the defect closed with through and through suture of 3-0 Vicryl Rapide. This lesion was approximately 1 x 1 cm. Following this, the incisions were injected with 0.5% Marcaine plain to aid in pain control. All sponge and needle counts were correct. The patient was taken to the recovery room in good condition. MD KEMI DykesW/PRIYA /[id number] cc: Skip [facility] Copies: ~ Electronically Signed By: SUBHA CASH MD 06/24/21 1648 PATIENT NAME: MELLISA BOBBY OPERATIVE REPORT DATE OF : 38 REPORT #: [id number] PHYSICIAN: SUBHA CASH MD PCP: OTHER PCP REPORT IS CONFIDENTIAL AND NOT TO BE RELEASED WITHOUT AUTHORIZATION
--- NOTE | 2021-07-03 14:45 | PATH ---
[facility] [address] [place], [place] [address] Signed THIS IS AN ADDENDUM REPORT SPECIMEN(S): A LEFT VAGINAL SIDEWALL MASS BIOPSY SPECIMEN(S): B RIGHT VAGINAL SIDEWALL MASS BIOPSY SPECIMEN(S): C UPPER ASPECT VAGINAL OPENING BIOPSY SPECIMEN(S): D RIGHT LOWER VAGINAL OPENING SPECIMEN SOURCE: A. LEFT VAGINAL SIDEWALL MASS BIOPSY B. RIGHT VAGINAL SIDEWALL MASS BIOPSY C. UPPER ASPECT VAGINAL OPENING BIOPSY D. RIGHT LOWER VAGINAL OPENING CLINICAL HISTORY: Vaginal bleeding, sidewall mass, hx of melanoma. FINAL PATHOLOGIC DIAGNOSIS: A. Vaginal sidewall mass, left, biopsy: - Melanoma. B. Vaginal sidewall mass, right, biopsy: - Melanoma. C. Vaginal opening, upper aspect, biopsy: - Hyperkeratotic squamous mucosa with chronic inflammation and significant pigment incontinence. - Negative for melanoma. D. Vaginal opening, right lower, biopsy: - Hyperkeratotic squamous mucosa with chronic inflammation and significant pigment incontinence. - Negative for melanoma. COMMENT: An in-situ component of the melanoma is not identified. 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 As part of [employer]'s Water/Wastewater [employer] program, this case was reviewed by another member of our pathology staff. Preliminary findings were discussed with Dr. Cash on 06/27/21. A diagnostic alert was initiated by Dr. Perry on 06/30/21. NAL:cml:C NR MICROSCOPIC EXAMINATION: Histologic sections of all submitted blocks are examined by light microscopy. PATIENT NAME: MELLISA BOBBY PATHOLOGY DATE OF : 38 REPORT #: [id number] PHYSICIAN: YOHAN HUGGINS PCP: OTHER PCP REPORT IS CONFIDENTIAL AND NOT TO BE RELEASED WITHOUT AUTHORIZATION [facility] [address] [place], [place] [address] Signed These findings, together with the gross examination, support the pathologic diagnosis. A and B. The tumors in specimens A and B are morphologically similar. Immunohistochemical stains (with appropriately staining controls) were performed on specimen B. The tumor is positive for SOX-10, MelanA, S100 (patchy) and HMB45 (patchy).Pancytokeratin shows non-specific scattered staining, p16 is focally positive, and p53 is not overexpressed. Overall, the combined morphologic and immunophenotypic profile is compatible with melanoma. C and D. Sections are similar and show keratinizing squamous mucosa with hyperkeratosis and lamina propria chronic inflammation and melanophages. Melan-A and SOX-10 on each (C1, D1, with appropriately staining controls) highlight melanocytes in the basal layer of the squamous epithelium and are negative for a neoplastic melanocytic proliferation. GROSS DESCRIPTION: Four specimens are received in four containers, labeled "GL." A. The specimen, labeled "GL, left vagina side wall mass biopsy," is received in formalin and consists of several irregular shaped soft, pink-sterling tissue fragment that aggregate measure 2.0 x 0.7 x 0.2 cm. The specimen is entirely submitted in cassette (A1). B. The specimen, labeled "GL, right vaginal side wall mass biopsy," is received in formalin and consists of several pieces of irregular shaped pink-sterling to dark red, soft tissue fragment that aggregate measure 3.3 x 2.0 x 0.3 cm. The specimen sectioned and entirely submitted in two cassettes (B1-B2). C. The specimen, labeled "GL, lesion of upper aspect of a vagina opening biopsy," is received in formalin and consists of two irregular shaped pink-sterling tissue fragments that aggregate measure 0.8 x 0.7 x 0.4 cm. The specimen is sectioned and entirely submitted in single cassette (C1). D. The specimen, labeled "GL, right lower vagina opening," is received in formalin and consists of one pink-sterling, soft tissue fragment that measure 0.4 cm in greatest dimension. The specimen is entirely submitted in cassette (D1). JS (under the direct supervision of a pathologist) The Gross Description was prepared using a voice recognition system. The report was reviewed for accuracy; however, sound-alike word errors, addition and/or deletions may occur. If there is any question about this report, please contact Client Services. PATIENT NAME: MELLISA BOBBY PATHOLOGY DATE OF : 38 REPORT #: [id number] PHYSICIAN: YOHAN HUGGINS PCP: OTHER PCP REPORT IS CONFIDENTIAL AND NOT TO BE RELEASED WITHOUT AUTHORIZATION [address] [address] Signed ADDITIONAL NOTES: Immunohistochemical and/or in situ hybridization studies were performed on this case with the appropriate positive controls that react as expected. This test was developed and its performance characteristics determined by [employer]. It has not been cleared or approved by the U.S. Food and Drug Administration. The FDA has determined that such clearance or approval is not necessary. This test is used for clinical purposes. It should not be regarded as investigational or for research. [facility] is certified under the Clinical Laboratory Improvement mendments of 1988 (CLIA) as qualified to perform high complexity clinical laboratory testing. This assay has not been validated for specimens that have been decalcified. The technical component was performed by [facility], [address] [place] [address] (Truck Shop Mechanic: Tiffanie Yeung MD; CLIA# [id number]). Professional interpretation [facility], [address] [place] [address] (CLIA# [id number]). PERFORMING LABORATORY: The technical component was performed by [facility], [address] [place] [address] (Truck Shop Mechanic: Tiffanie Yeung MD; CLIA# [id number]). Professional interpretation was performed by [facility], [address] [address] (CLIA# [id number]). ADDITIONAL NOTES: Immunohistochemical and/or in situ hybridization studies were performed on this case with the appropriate positive controls that react as expected. This test was developed and its performance characteristics determined by [facility]. It has not been cleared or approved by the U.S. Food and Drug Administration. The FDA has determined that such clearance or approval is not necessary. This test is used for clinical purposes. It should not be regarded as investigational or for research. [facility] is certified under the Clinical Laboratory Improvement Amendments of 1988 (CLIA) as qualified to perform high complexity clinical laboratory testing. This assay has not been validated for specimens that have been decalcified. The technical component was performed by [facility], [address] [place] [address] (Truck Shop Mechanic: Tiffanie Yeung MD; CLIA# [id number]). PATIENT NAME: MELLISA BOBBY PATHOLOGY DATE OF : 38 REPORT #: [id number] PHYSICIAN: YOHAN HUGGINS PCP: OTHER PCP REPORT IS CONFIDENTIAL AND NOT TO BE RELEASED WITHOUT AUTHORIZATION [facility] [address] [place], [place] [address] Signed Professional interpretation was performed by [facility], [address] [place] [id number] (CLIA# [id number]). REASON FOR ADDENDUM: To report IHC that was previously done but not reported. ADDENDUM PATHOLOGIC DIAGNOSIS: Regarding specimen B: Vaginal sidewall mass, right, biopsy: - A previously performed immunohistochemical stain (with appropriately staining controls) for estrogen receptor is negative for staining within the tumor cells. The final diagnosis remains unchanged. NAL:cml Diagnostician: Simi Perry MD Pathologist Electronically Signed 07/03/2021 Copies: ~ PATIENT NAME: MELLISA BOBBY PATHOLOGY DATE OF : 38 REPORT #: [id number] PHYSICIAN: [facility] PCP: OTHER PCP REPORT IS CONFIDENTIAL AND NOT TO BE RELEASED WITHOUT AUTHORIZATION
== END 2021-06-23 15:05 | disposition home or self-care (01) ==
LOC: DS 08:00
PROVIDERS: ATTEND Obstetrics & Gynecology
PROC: 0UBGXZZ Excision of Vagina, External Approach (ICD-10-PCS; principal; 2021-06-23 11:00)
DX: C52 Malignant neoplasm of vagina (principal); N90.89 Other specified noninflammatory disorders of vulva and perineum; N93.9 Abnormal uterine and vaginal bleeding, unspecified; Z88.1 Allergy status to other antibiotic agents; Z88.8 Allergy status to other drugs, medicaments and biological substances
CPT/HCPCS: 88305; 88341; 88342; J1100; J1644; J1885; J2001; J2704; J3010; J7121